=== PATIENT | male | born 1985 | race Caucasian/White ===

== ENCOUNTER → 2020-07-09 10:04 | Outpatient (CLI) | payer OTHER, SELFPAY ==
[2020-07-10 22:36] LABS: COVID19 Sendout Not Detected (Not Detect)
== END ==
PROVIDERS: PCP Family Medicine; Referring Provider Family Medicine; Visit Provider Family Medicine
DX: R50.9 Fever, unspecified (principal); R05 Cough
CPT/HCPCS: 87635

== ENCOUNTER 2020-08-07 21:08 | Emergency (ER) | payer OTHER, SELFPAY ==
[2020-08-07] VITALS (8 sets, daily range): BP systolic 131; BP diastolic 87; PULSE 86–98; RESP 14–16; TEMP 36.6; O2SAT 93–98
--- NOTE | 2020-08-07 23:24 | ED.GENADULT ---
HPI - General Adult General Chief complaint: Toxicology Problem Stated complaint: ETOH Time Seen by Provider: 08/07/20 21:24 Source: patient and EMS Mode of arrival: EMS Limitations: other (Intoxicated) History of Present Illness HPI narrative: 34-year-old male brought in by EMS after they were called by police secondary to intoxication of the individual. Unsure the exact circumstances status how he ended up here in the ER however was reported that he was drinking at a local bar. He left the ball our hand please recall secondary to him walking down the street intoxicated. There reports that he was with his girlfriend who is intoxicated as well. Unsure where the police actually found the individual but when he was located EMS was called. No intervention by EMS prior to arrival. Patient does admit to drinking alcohol. No signs of trauma. Patient os I intoxicated. Related Data Allergies Allergy/AdvReac Type Severity Reaction Status Date / Time No Known Drug Allergies Allergy Unverified 08/07/20 21:13 Review of Systems Review of Systems Narrative: Patient reports no symptoms however this is limited secondary to his intoxication ROS Unobtainable: Unobtainable due to medical condition Patient History Medical History Unable to acculturate (Acute) Social History lives independently: Yes Exam Initial Vital Signs Initial Vital Signs: Vital Signs Temperature 97.8 F 08/07/20 21:13 Pulse Rate 89 08/07/20 21:13 Respiratory Rate 14 08/07/20 21:13 Blood Pressure 131/87 08/07/20 21:13 Pulse Oximetry 97 08/07/20 21:13 Const General: comfortable Limitations: altered mental status (Intoxicated) HENMT Head: normal to inspection and normocephalic Resp Effort & Inspection: normal respiratory effort Cardio Rate: regular rate Skin Lesions: no lesions Rashes: no rashes Neuro General: patient alert and patient awake Gait: normal gait Extrem General: normal to inspection Psych Appearance: grossly normal and well kempt Course Vital Signs Vital signs: Vital Signs - 8 hr 08/07/20 21:13 08/07/20 22:17 08/07/20 22:18 Temperature 97.8 F Pulse Rate 89 89 88 Respiratory Rate 14 Blood Pressure 131/87 Pulse Oximetry 97 93 95 08/07/20 22:30 08/07/20 23:00 08/07/20 23:15 Temperature Pulse Rate 87 89 98 H Respiratory Rate 14 Blood Pressure Pulse Oximetry 94 94 96 08/07/20 23:30 08/07/20 23:53 08/08/20 00:00 Temperature Pulse Rate 87 86 86 Respiratory Rate 16 Blood Pressure Pulse Oximetry 98 98 98 Medical Decision Making MDM Narrative Medical decision making narrative: Patient has no signs of trauma. Is obviously intoxicated. Slept in the emergency department here for a short period of time. He then woke up and was able to stand at bedside. He did urinate on the floor the room. He then stated that he wanted to go home. Informed him that he needed to contact someone to come and pick him up. He attempted multiple times to contact his girlfriend. We attempted to contact his girlfriend. He contacted other individuals by his phone. He stated that he called a cab however no camp arrives to the ER. During the course of this the patient did walk out of the emergency department. He was not discharged. He did not sign any discharge paperwork. The patient eloped. Discharge Plan Departure Patient Disposition: Left Against Medical Advice Clinical Impression: Alcoholic intoxication Referrals: Elizabeth Hinojosa MD [Primary Care Provider] - Stand Alone Forms: Against Medical Advice
[2020-08-08] VITALS: PULSE 86; O2SAT 98
--- NOTE | 2020-08-08 00:35 | PC.NURSE ---
Pt awake and sitting up on bedside. Shown to bathroom.
--- NOTE | 2020-08-08 01:19 | PC.NURSE ---
Pt started becoming agitated asking to leave. stated need some one to pick him. Pt stated he called a cab. stated he could wait in room until cab arrived. Pt started becoming aggressive. Able to switch out staff and calm patient down. Pt then waited for staff to occupied and then walked out of ER, Confirmed by security to have walked out front door.
== END 2020-08-08 01:15 | disposition left against medical advice (07) ==
PROVIDERS: Emergency Provider Emergency Medicine; PCP Family Medicine
DX: F10.129 Alcohol abuse with intoxication, unspecified (principal)
CPT/HCPCS: 99281; 99283

== ENCOUNTER → 2021-01-06 13:08 | Outpatient (ROUT) | payer OTHER, SELFPAY ==
[2021-01-06 13:37] LABS: COVID19 -Nasal RAPID Negative (Negative)
== END ==
PROVIDERS: PCP Family Medicine; Visit Provider Family Medicine
DX: Z20.822 Contact with and (suspected) exposure to COVID-19 (principal)
CPT/HCPCS: 87635

== ENCOUNTER → 2021-02-10 12:36 | Outpatient (ROUT) | payer OTHER, SELFPAY ==
[2021-02-10 12:57] LABS: COVID19 -Nasal RAPID Negative (Negative)
== END ==
PROVIDERS: PCP Family Medicine; Visit Provider Family Medicine
DX: R50.9 Fever, unspecified (principal); R09.89 Other specified symptoms and signs involving the circulatory and respiratory systems; Z20.822 Contact with and (suspected) exposure to COVID-19
CPT/HCPCS: 87635

== ENCOUNTER → 2021-02-17 12:13 | Outpatient (ROUT) | payer OTHER, SELFPAY ==
[2021-02-17 13:08] LABS: Influenza A - CEPHEID Flu A NEGATIVE (NEGATIVE); Influenza B - CEPHEID Flu B NEGATIVE (NEGATIVE)
[2021-02-17 13:30] LABS: COVID19 -Nasal RAPID Negative (Negative)
== END ==
PROVIDERS: PCP Family Medicine; Visit Provider Family Medicine
DX: Z20.822 Contact with and (suspected) exposure to COVID-19 (principal)
CPT/HCPCS: 87502; 87635

== ENCOUNTER → 2021-03-10 14:37 | Outpatient (ROUT) | payer OTHER, SELFPAY ==
[2021-03-10 15:07] LABS: COVID19 -Nasal RAPID Negative (Negative)
== END ==
PROVIDERS: PCP Family Medicine; Visit Provider Family Medicine
DX: Z20.822 Contact with and (suspected) exposure to COVID-19 (principal)
CPT/HCPCS: 87635

== ENCOUNTER → 2021-03-14 12:01 | Outpatient (ROUT) | payer OTHER, SELFPAY ==
[2021-03-14 12:44] LABS: COVID19 -Nasal RAPID Negative (Negative)
== END ==
PROVIDERS: PCP Family Medicine; Visit Provider Family Medicine
DX: Z20.822 Contact with and (suspected) exposure to COVID-19 (principal)
CPT/HCPCS: 87635